=== PATIENT | female | born 1935 | race Caucasian/White ===

== ENCOUNTER 2018-01-09 07:56 | Outpatient (CLI) | payer MEDICARE ==
[2018-01-09] MEDS ORDERED: Gadobenate Dimeglumine 529 MG/1 ML (20ML VIAL) ONE (09:00)
--- NOTE | 2018-01-09 12:17 | MRI ---
MRI LUMBAR SPINE WITH AND WITHOUT GADOLINIUM CONTRAST: HISTORY: Prior surgery. Chronic low back pain with worsening right leg radiculopathy. FINDINGS: Images including the retroperitoneum show a tiny cortical cyst of the left kidney. The conus medulla ris has a normal appearance. Vertebral body heights are maintained. There is rightward convex rotat or scoliotic curvature. Desiccation of all intervertebral disks. T12-L1: Mild osteophytosis. Central anal and neural foramina are patent. L1-L2: Mild disk space narrowing and posterior disk bulge. Circumferential degenerative changes. M ild stenosis of the central canal and each neural foramen. L2-L3: Minimal degenerative retrolisthesis. Disk space narrowing and mild disk bulge. Postoperativ e decompression. Prominent osseous hypertrophy of the facets. Severe right and moderate left forami nal stenoses. L3-L4: Extensive postoperative changes. Disk space narrowing. Grade 1 degenerative spondylolisthes is. Posterior bulge of the intervertebral disk. Moderate stenosis of the central canal remains. Se danita bilateral foraminal stenoses. L4-L5: Postoperative changes with fusion of the disk space. The thecal sac is patent with posterior decompression. Mild right foraminal stenosis. L5-S1: Mild osteophytosis. Central canal and neural foramina are patent. 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 Clinical correlation regarding the right L 3 dermatome is required. POS: [facility]
== END 2018-01-09 07:57 | disposition home or self-care (01) ==
LOC: SCSMRI 07:56
PROVIDERS: ATTEND Nurse Practitioner Family
DX: M47.26 Other spondylosis with radiculopathy, lumbar region (principal); Z98.890 Other specified postprocedural states
CPT/HCPCS: 72158; 82565; A9579

== ENCOUNTER 2019-05-15 14:17 | Emergency (ER) | payer MEDICARE ==
--- NOTE | 2019-05-15 15:12 | ULT ---
VENOUS DOPPLER ULTRASOUND OF THE RIGHT LOWER EXTREMITY: Date: 05/15/19 HISTORY: Right lower extremity edema. TECHNIQUE: Hale scale ultrasound with color flow and spectral Doppler imaging of the deep venous system of the r ight lower extremity was performed. FINDINGS: There is good flow, compression, and augmentation noted in the right common femoral, femoral, deep fe moral, popliteal, posterior tibial, and greater saphenous veins. IMPRESSION: No evidence of deep venous thrombosis in the right lower extremity. POS: OFF
== END 2019-05-15 15:39 | disposition home or self-care (01) ==
LOC: ERS 14:17
DX: M79.661 Pain in right lower leg (principal); I10 Essential (primary) hypertension; Z79.899 Other long term (current) drug therapy; Z79.82 Long term (current) use of aspirin

== ENCOUNTER 2022-09-07 11:17 | Emergency (ER) | payer MEDICARE ==
[2022-09-07] MEDS ORDERED: Ondansetron PF 4 MG/2 ML Vial ONE (12:11)
[2022-09-07] MEDS ORDERED: Acetaminophen 500 MG TAB ONE ×2 (12:11→12:13)
[2022-09-07 12:12] LABS: #Lymphocytes 1.1 thou/uL (1.20-3.40); #Monocytes 0.6 thou/uL (0.11-0.59); #Neutrophils 8.2 thou/uL (1.40-6.50); %Basophils 0.1 % (0.0-1.0); %Eosinophils 0.3 % (0.0-10.0); %Lymphocytes 11.1 % (21.0-51.0); %Monocytes 6.2 % (0.0-10.0); %Neutrophils 82.4 % (42.0-75.0); Hemoglobin 12.7 g/dL (12.0-16.0); Mean Corpuscular HGB CONC 33.3 g/dL (32.0-36.0); Mean Corpuscular Hemoglobin 32.1 pg (27.0-31.0); Mean Corpuscular Volume 96.5 fl (78.0-98.0); Mean Platelet Volume 7.3 fL (7.4-10.4); Platelet Count 220 10x3/uL (130-400); RBC Distribution Width 11.2 % (11.5-14.5); Red Blood Cell (RBC) Count 3.94 mill/uL (4.20-5.40)
[2022-09-07 12:23] LABS: Bacteria/HPF 1+ HPF (None Seen); Bilirubin Negative (Negative); Blood, Urine Negative (Negative); Clarity Turbid (Clear); Glucose, Urine (Dipstick) Normal (Negative); Ketone, Urine Negative (Negative); Leukocyte Negative Leu/uL (Negative); Nitrite Negative (Negative); Protein, Urine (Dipstick) 50 mg/dL (Neg-Trace); RBC/HPF 0-3 HPF (0-3); Specific Gravity, Urine 1.021 (1.002-1.036); WBC/HPF 0-3 HPF (0-3); pH, Urine 6.5 (5.0-9.0)
[2022-09-07 12:34] LABS: ALT (SGPT) 22 U/L (8-55); AST (SGOT) 20 U/L (5-34); Albumin 3.9 g/dL (3.4-4.8); Alkaline Phosphatase 77 U/L (40-110); Anion Gap 15 mmol/L (10-20); BUN (Urea Nitrogen) 12 mg/dL (9.8-20.1); Calc. Creatinine Clearance 0 mL/min (70-130); Calcium 9.6 mg/dL (7.8-10.44); Carbon Dioxide 22 mmol/L (23-31); Chloride 101 mmol/L (98-107); Estimated GFR 68; Globulin 2.8 g/dL (2.4-3.5); Glucose 122 mg/dL (83-110); Lipase 30 U/L (8-78); Potassium 3.7 mmol/L (3.5-5.1); Protein, Total 6.7 g/dL (5.8-8.1); Sodium 134 mmol/L (136-145)
== END 2022-09-07 15:42 | disposition home or self-care (01) ==
LOC: ERS 11:17
DX: K52.9 Noninfective gastroenteritis and colitis, unspecified (principal); K86.89 Other specified diseases of pancreas; I25.10 Atherosclerotic heart disease of native coronary artery without angina pectoris; I10 Essential (primary) hypertension; Z79.899 Other long term (current) drug therapy
CPT/HCPCS: 36415; 74177; 80053; 81003; 81015; 83690; 84484; 85025; 93005; 96361; 96374; J2405

== ENCOUNTER 2022-09-12 05:00 | Observation (INO) | payer MEDICARE ==
[2022-09-12 06:39] VITALS: BMI 27.8
[2022-09-12] MEDS ORDERED: Dicyclomine 20 MG TAB PO PRN (06:47)
[2022-09-12] MEDS ORDERED: Cyclobenzaprine 10 MG TAB PO PRN (06:47)
[2022-09-12] MEDS ORDERED: Fluticasone Propionate Nasal Spray 16 gm Bottle NASAL PRN (06:47)
[2022-09-12 06:51] LABS: #Basophils 0.1 thou/uL (0.0-0.2); #Eosinphils 0.1 thou/uL (0.0-0.7); #Lymphocytes 1.2 thou/uL (1.20-3.40); #Monocytes 0.5 thou/uL (0.11-0.59); #Neutrophils 2.6 thou/uL (1.40-6.50); %Basophils 1.7 % (0.0-1.0); %Lymphocytes 26.5 % (21.0-51.0); %Monocytes 11.9 % (0.0-10.0); Mean Corpuscular HGB CONC 34.7 g/dL (32.0-36.0); Mean Platelet Volume 7.3 fL (7.4-10.4); Platelet Count 185 10x3/uL (130-400); RBC Distribution Width 11.3 % (11.5-14.5); Red Blood Cell (RBC) Count 3.62 mill/uL (4.20-5.40); White Blood Cell (WBC) Count 4.5 10x3/uL (4.8-10.8)
[2022-09-12] MEDS ORDERED: Estradiol 1 MG TAB PO PRN (07:02)
[2022-09-12 07:04] LABS: ALT (SGPT) 23 U/L (8-55); AST (SGOT) 39 U/L (5-34); Albumin 3.6 g/dL (3.4-4.8); Alkaline Phosphatase 67 U/L (40-110); Anion Gap 17 mmol/L (10-20); BUN (Urea Nitrogen) 10 mg/dL (9.8-20.1); Bilirubin, Total 0.5 mg/dL (0.2-1.2); Calc. Creatinine Clearance 47 mL/min (70-130); Calcium 9.5 mg/dL (7.8-10.44); Carbon Dioxide 18 mmol/L (23-31); Chloride 99 mmol/L (98-107); Estimated GFR 53; Globulin 2.7 g/dL (2.4-3.5); Glucose 116 mg/dL (83-110); Lipase 29 U/L (8-78); Potassium 3.9 mmol/L (3.5-5.1); Protein, Total 6.3 g/dL (5.8-8.1); Sodium 130 mmol/L (136-145); Troponin I 0.052 ng/mL (< 0.028)
[2022-09-12 07:05] LABS: Lactic Acid 1.5 mmol/L (0.5-2.2)
[2022-09-12 07:26] LABS: Magnesium 1.2 mg/dL (1.6-2.6); Phosphorus 2.6 mg/dL (2.3-4.7)
[2022-09-12 08:56] LABS: Troponin I 0.999 ng/mL (< 0.028)
[2022-09-12] MEDS ORDERED: Metoprolol Tartrate 25 MG TAB PO SCH (09:00)
[2022-09-12] MEDS ORDERED: Heparin 25,000 units/D5W 500 ML IVPB SCH (09:15)
[2022-09-12] MEDS ORDERED: Magnesium 2 GM/50 ML(in water) 2 GM in Premix Bag 1 BAG IVPB SCH (09:15)
[2022-09-12] MEDS ORDERED: Heparin 10,000 UNITS/ 10 ML VIAL SLOW IVP SCH (09:15)
[2022-09-12] MEDS: Ciprofloxacin 500 MG TAB PO SCH ×2 (09:49→21:00)
[2022-09-12] MEDS: Ascorbic Acid 500 mg Chewable Tablet PO SCH (09:49)
[2022-09-12] MEDS: metroNIDAZOLE 500 MG TAB PO SCH ×3 (09:50→21:01)
[2022-09-12] MEDS: Amlodipine 5 MG TAB PO SCH (09:50)
[2022-09-12] MEDS: Ipratropium Bromide 0.06% Nasal Inhaler 15ml EA NARE SCH (09:50)
[2022-09-12 10:18] LABS: Hemoglobin 10.8 g/dL (12.0-16.0); Platelet Count 174 10x3/uL (130-400)
[2022-09-12 10:50] LABS: Troponin I 1.261 ng/mL (< 0.028)
[2022-09-12 11:21] LABS: Bilirubin Negative (Negative); Blood, Urine Negative (Negative); CAUTI Indications for Culture Dysuria,urgency,freq; Clarity Clear (Clear); Glucose, Urine (Dipstick) Normal (Negative); Ketone, Urine 10 mg/dL (Negative); Leukocyte Negative Leu/uL (Negative); Nitrite Negative (Negative); Protein, Urine (Dipstick) Negative (Neg-Trace); RBC/HPF 0-3 HPF (0-3); Specific Gravity, Urine 1.012 (1.002-1.036); Urobilinogen Normal mg/dL (Less than 2); WBC/HPF 0-3 HPF (0-3); pH, Urine 6.5 (5.0-9.0)
[2022-09-12 11:22] LABS: Bacteria/HPF 1+ HPF (None Seen)
[2022-09-12 11:24] LABS: Urine Culture Reflex No No
[2022-09-12] MEDS: Amiodarone 200 MG TAB PO SCH ×2 (14:55→20:59)
[2022-09-12] MEDS ORDERED: Amiodarone 200 MG TAB PO SCH (15:00)
[2022-09-12] MEDS: Apixaban 5 MG TAB PO SCH (20:59)
[2022-09-12] MEDS ORDERED: Lisinopril 20 MG TAB PO SCH (21:00)
[2022-09-12] MEDS ORDERED: Fish Oil 1,000 MG CAP PO SCH (21:00)
[2022-09-12] MEDS ORDERED: SIMVASTATIN PO SCH (21:00)
[2022-09-12] MEDS ORDERED: Calcium Carbonate 600 MG + Vit D TAB PO SCH (21:00)
[2022-09-12] MEDS ORDERED: Simvastatin 10 MG TAB PO SCH (21:00)
[2022-09-12] MEDS ORDERED: Multivitamin W/ Minerals 1 TAB PO SCH (21:00)
[2022-09-12] MEDS ORDERED: Aspirin Chewable 81 MG TAB PO SCH (21:00)
[2022-09-12] MEDS ORDERED: Simvastatin 40 MG TAB PO SCH (21:00)
[2022-09-12] MEDS ORDERED: EZETIMIBE PO SCH (21:00)
[2022-09-12] MEDS ORDERED: Ezetimibe 10 MG TAB PO SCH ×2 (21:00)
[2022-09-13 05:07] LABS: #Eosinphils 0.1 thou/uL (0.0-0.7); #Lymphocytes 1.3 thou/uL (1.20-3.40); #Monocytes 0.4 thou/uL (0.11-0.59); #Neutrophils 1.7 thou/uL (1.40-6.50); %Basophils 0.8 % (0.0-1.0); %Eosinophils 1.8 % (0.0-10.0); %Lymphocytes 37.9 % (21.0-51.0); %Monocytes 12.1 % (0.0-10.0); %Neutrophils 47.4 % (42.0-75.0); Hemoglobin 10.5 g/dL (12.0-16.0); Mean Corpuscular HGB CONC 33.7 g/dL (32.0-36.0); Mean Corpuscular Hemoglobin 32.2 pg (27.0-31.0); Mean Corpuscular Volume 95.8 fl (78.0-98.0); Mean Platelet Volume 7.5 fL (7.4-10.4); Platelet Count 155 10x3/uL (130-400); RBC Distribution Width 11.2 % (11.5-14.5); Red Blood Cell (RBC) Count 3.27 mill/uL (4.20-5.40); White Blood Cell (WBC) Count 3.5 10x3/uL (4.8-10.8)
[2022-09-13 05:11] LABS: Anion Gap 12 mmol/L (10-20); BUN (Urea Nitrogen) 7 mg/dL (9.8-20.1); Calc. Creatinine Clearance 62 mL/min (70-130); Calcium 8.7 mg/dL (7.8-10.44); Carbon Dioxide 22 mmol/L (23-31); Chloride 101 mmol/L (98-107); Estimated GFR 76; Glucose 102 mg/dL (83-110); Magnesium 1.6 mg/dL (1.6-2.6); Phosphorus 2.9 mg/dL (2.3-4.7); Potassium 3.7 mmol/L (3.5-5.1); Sodium 131 mmol/L (136-145)
[2022-09-13] MEDS: Amiodarone 200 MG TAB PO SCH (08:44)
[2022-09-13] MEDS: Amlodipine 5 MG TAB PO SCH (08:45)
[2022-09-13] MEDS: Apixaban 5 MG TAB PO SCH (08:45)
[2022-09-13] MEDS: Ipratropium Bromide 0.06% Nasal Inhaler 15ml EA NARE SCH (08:46)
[2022-09-13] MEDS: Ascorbic Acid 500 mg Chewable Tablet PO SCH (08:46)
[2022-09-13] MEDS: Ciprofloxacin 500 MG TAB PO SCH (08:46)
[2022-09-13] MEDS: metroNIDAZOLE 500 MG TAB PO SCH (08:47)
[2022-09-13] MEDS ORDERED: Magnesium Oxide 400 MG TAB PO SCH (09:00)
[2022-09-13 12:11] VITALS: TEMP 98.6
[2022-09-13 12:35] VITALS: BP 131/64
[2022-09-13] MEDS ORDERED: Rosuvastatin 20 MG TAB PO SCH (21:00)
== END 2022-09-13 12:56 | disposition home or self-care (01) ==
LOC: ERS 05:00 → 2SW 06:21
PROVIDERS: ADMIT Family Medicine; ATTEND Family Medicine
DX: I48.0 Paroxysmal atrial fibrillation (principal); R07.2 Precordial pain; I25.10 Atherosclerotic heart disease of native coronary artery without angina pectoris; K58.9 Irritable bowel syndrome, unspecified; E87.1 Hypo-osmolality and hyponatremia; K86.9 Disease of pancreas, unspecified; I10 Essential (primary) hypertension; K21.9 Gastro-esophageal reflux disease without esophagitis; E78.5 Hyperlipidemia, unspecified; K57.30 Diverticulosis of large intestine without perforation or abscess without bleeding; R91.8 Other nonspecific abnormal finding of lung field; E83.42 Hypomagnesemia; E11.9 Type 2 diabetes mellitus without complications; I08.3 Combined rheumatic disorders of mitral, aortic and tricuspid valves; Z66 Do not resuscitate; Z86.16 Personal history of COVID-19; Z79.2 Long term (current) use of antibiotics; Z79.82 Long term (current) use of aspirin; Z79.899 Other long term (current) drug therapy; Z88.0 Allergy status to penicillin; Z88.5 Allergy status to narcotic agent; Z20.822 Contact with and (suspected) exposure to COVID-19
CPT/HCPCS: 71045; 80048; 81001; 83605; 83690; 83735 ×2; 84100 ×2; 84484; 85014; 85018; 85025; 85049; 85730; 93005; 93306; 97116; 97535; U0003; U0005; 36415; 80053; 84443; 93010; 96374; 96375; G0378; J1644; J3475

== ENCOUNTER 2022-10-29 09:45 | Day surgery (SDC) | payer MEDICARE ==
[2022-10-25 11:13] VITALS: BMI 25.2
[2022-10-29] MEDS ORDERED: Acetaminophen 500 MG TAB ONE (10:31)
[2022-10-29] MEDS ORDERED: Ketorolac Tromethamine 30 MG/ML VIAL ONE (10:31)
[2022-10-29] MEDS ORDERED: Lidocaine 1% (PF) 30 ML VIAL ONE (11:13)
[2022-10-29] MEDS ORDERED: Bupivacaine/Epinephrine 0.25% 30 ML VIAL ONE (11:13)
[2022-10-29 11:21] LABS: Potassium 3.1 mmol/L (3.5-5.1)
[2022-10-29] MEDS ORDERED: FENTANYL 50 MCG/ML 1 ML VIAL ONE (11:37)
[2022-10-29] MEDS ORDERED: PROPOFOL 20 ML ONE (11:37)
[2022-10-29] MEDS ORDERED: CEFAZOLIN 2 GM VIAL ONE (14:31)
[2022-10-29] MEDS ORDERED: Sodium Chloride 0.9% 100 ML ONE (14:31)
== END 2022-10-29 16:10 | disposition home or self-care (01) ==
LOC: SDC 09:45
PROVIDERS: ATTEND Specialist
PROC: 0JH63WZ Insertion of Totally Implantable Vascular Access Device into Chest Subcutaneous Tissue and Fascia, Percutaneous Approach (ICD-10-PCS; principal; 2022-10-29)
PROC: 02HV33Z Insertion of Infusion Device into Superior Vena Cava, Percutaneous Approach (ICD-10-PCS; 2022-10-29)
PROC: B5181ZA Fluoroscopy of Superior Vena Cava using Low Osmolar Contrast, Guidance (ICD-10-PCS; 2022-10-29)
DX: C78.89 Secondary malignant neoplasm of other digestive organs (principal); C80.1 Malignant (primary) neoplasm, unspecified; I13.0 Hypertensive heart and chronic kidney disease with heart failure and stage 1 through stage 4 chronic kidney disease, or unspecified chronic kidney disease; N18.30 Chronic kidney disease, stage 3 unspecified; I50.30 Unspecified diastolic (congestive) heart failure; Z88.0 Allergy status to penicillin; Z88.5 Allergy status to narcotic agent; Z95.5 Presence of coronary angioplasty implant and graft; Z79.82 Long term (current) use of aspirin; Z79.01 Long term (current) use of anticoagulants; Z79.899 Other long term (current) drug therapy
CPT/HCPCS: 71045; 84132; C1788; J1642; J1885; J2001; J2704; J3010; J3490

== ENCOUNTER 2022-11-01 09:39 | Inpatient (IN) | payer MEDICARE ==
[2022-11-01] MEDS ORDERED: Cefepime 2 GM VIAL ONE (10:24)
[2022-11-01 11:09] LABS: ALT (SGPT) 16 U/L (8-55); AST (SGOT) 34 U/L (5-34); Albumin 3.2 g/dL (3.4-4.8); Alkaline Phosphatase 113 U/L (40-110); Anion Gap 15 mmol/L (10-20); BUN (Urea Nitrogen) 12 mg/dL (9.8-20.1); Bilirubin, Total 1.6 mg/dL (0.2-1.2); CK (CPK) 91 U/L (29-168); Calc. Creatinine Clearance 0 mL/min (70-130); Calcium 8.8 mg/dL (7.8-10.44); Carbon Dioxide 19 mmol/L (23-31); Chloride 102 mmol/L (98-107); Estimated GFR 36; Globulin 3.1 g/dL (2.4-3.5); Glucose 121 mg/dL (83-110); Lipase 8 U/L (8-78); Potassium 3.3 mmol/L (3.5-5.1); Protein, Total 6.3 g/dL (5.8-8.1); Sodium 133 mmol/L (136-145)
[2022-11-01 11:28] LABS: #Lymphocytes 0.4 thou/uL (1.20-3.40); #Neutrophils 1.8 thou/uL (1.40-6.50); %Eosinophils 0.7 % (0.0-10.0); %Lymphocytes 16.1 % (21.0-51.0); %Monocytes 1.1 % (0.0-10.0); %Neutrophils 82.2 % (42.0-75.0); Burr Cells SLIGHT = 2-5 cells (100X) (0-1/hpf); Hemoglobin 8.5 g/dL (12.0-16.0); MDiff Complete? YES; Mean Corpuscular Hemoglobin 29.9 pg (27.0-31.0); Mean Corpuscular Volume 93.7 fl (78.0-98.0); Mean Platelet Volume 7.7 fL (7.4-10.4); Platelet Count 117 10x3/uL (130-400); Platelet Morphology Comment Appears Decreased; Polychromasia SLIGHT = 2-3 cells (100X) (0-2/hpf); Red Blood Cell (RBC) Count 2.85 mill/uL (4.20-5.40); White Blood Cell (WBC) Count 2.2 10x3/uL (4.8-10.8)
[2022-11-01 11:30] LABS: CKMB 1.9 ng/mL (0-6.6)
[2022-11-01] MEDS ORDERED: Vancomycin 1 GM/200 ML (FROZEN) BAG ONE (11:30)
[2022-11-01 12:57] LABS: SARS-CoV-2 NAA Rapid Test Not Detected (NotDetected)
[2022-11-01] MEDS ORDERED: Iopamidol-370 76% 500 ML MDV (1 ML CHARGE) ONE (13:38)
[2022-11-01 14:20] VITALS: BMI 27.5
[2022-11-01 14:55] LABS: Lactic Acid 1.4 mmol/L (0.5-2.2)
[2022-11-01] MEDS ORDERED: Vancomycin Dose by Levels Sliding Scale (Wt 71-99) FS SCH (15:30)
[2022-11-01] MEDS ORDERED: Potassium Chloride 20 MEQ TAB PO SCH (15:30)
[2022-11-01] MEDS ORDERED: Lactated Ringer's 1,000 ML IV SCH (15:30)
[2022-11-01] MEDS ORDERED: Furosemide 20 MG TAB PO SCH (15:45)
[2022-11-01] MEDS: Acetaminophen 325 MG TAB PO PRN (15:57)
[2022-11-01] MEDS: Ondansetron PF 4 MG/2 ML Vial IVP PRN (15:57)
[2022-11-01 16:26] LABS: Troponin I 0.092 ng/mL (< 0.028)
[2022-11-01] MEDS ORDERED: Potassium Chloride 20 MEQ in Premix Bag 1 BAG IVPB SCH (16:45)
[2022-11-01] MEDS ORDERED: Ondansetron ODT 4 MG TAB PO PRN (18:12)
[2022-11-01] MEDS ORDERED: Cyclobenzaprine 10 MG TAB PO PRN (18:12)
[2022-11-01] MEDS ORDERED: Dicyclomine 20 MG TAB PO PRN (18:12)
[2022-11-01] MEDS ORDERED: Naloxone HCl 0.4 mg/ml Vial IV PRN (18:16)
[2022-11-01 19:21] LABS: Bacteria/HPF None Seen HPF (None Seen); Bilirubin Negative (Negative); Blood, Urine 1+ (Negative); CAUTI Indications for Culture Fever or rigors; Clarity Clear (Clear); Glucose, Urine (Dipstick) Normal (Negative); Ketone, Urine Negative (Negative); Leukocyte Negative Leu/uL (Negative); Nitrite Negative (Negative); Protein, Urine (Dipstick) 50 mg/dL (Neg-Trace); Specific Gravity, Urine 1.013 (1.002-1.036); Squamous Epithelial None Seen HPF (0-3); Urobilinogen Normal mg/dL (Less than 2); WBC/HPF 0-3 HPF (0-3); pH, Urine 6.5 (5.0-9.0)
[2022-11-01 19:23] LABS: Urine Culture Reflex No No
[2022-11-01 20:30] LABS: Troponin I 0.135 ng/mL (< 0.028)
[2022-11-01] MEDS ORDERED: Vancomycin 1 GM in Premix Bag 1 BAG IVPB SCH (21:00)
[2022-11-01] MEDS: Cefepime 1 GM in Sodium Chloride 0.9% 100 ML IVPB SCH (22:04)
[2022-11-01] MEDS: Aspirin Chewable 81 MG TAB PO SCH (22:05)
[2022-11-01] MEDS: HYDROmorphone 2 MG TAB PO SCH (22:05)
[2022-11-01] MEDS: Lisinopril 20 MG TAB PO SCH (22:05)
[2022-11-01] MEDS: Mirtazapine 15 MG Soltab PO SCH (22:05)
[2022-11-01] MEDS: Apixaban 5 MG TAB PO SCH (22:07)
[2022-11-01] MEDS: Clotrimazole 2% 3 Day Vag Cr 22.2 GM TUBE VAG SCH (22:07)
[2022-11-01 23:19] LABS: Troponin I 0.112 ng/mL (< 0.028)
[2022-11-02] MEDS: HYDROmorphone 2 MG TAB PO SCH ×2 (01:28→03:48)
[2022-11-02 05:44] LABS: #Lymphocytes 0.5 thou/uL (1.20-3.40); #Monocytes 0.1 thou/uL (0.11-0.59); #Neutrophils 2.2 thou/uL (1.40-6.50); %Basophils 0.2 % (0.0-1.0); %Eosinophils 1.3 % (0.0-10.0); %Lymphocytes 18.3 % (21.0-51.0); %Monocytes 2.3 % (0.0-10.0); %Neutrophils 77.8 % (42.0-75.0); Hemoglobin 8.9 g/dL (12.0-16.0); Mean Corpuscular HGB CONC 33.7 g/dL (32.0-36.0); Mean Corpuscular Hemoglobin 31.9 pg (27.0-31.0); Mean Corpuscular Volume 94.6 fl (78.0-98.0); Mean Platelet Volume 8.2 fL (7.4-10.4); Platelet Count 83 10x3/uL (130-400); White Blood Cell (WBC) Count 2.8 10x3/uL (4.8-10.8)
[2022-11-02 06:14] LABS: Anion Gap 11 mmol/L (10-20); BUN (Urea Nitrogen) 11 mg/dL (9.8-20.1); Calc. Creatinine Clearance 39 mL/min (70-130); Carbon Dioxide 19 mmol/L (23-31); Chloride 109 mmol/L (98-107); Estimated GFR 44; Glucose 92 mg/dL (83-110); Potassium 2.7 mmol/L (3.5-5.1); Sodium 136 mmol/L (136-145)
[2022-11-02] MEDS ORDERED: HYDROmorphone 2 MG TAB PO PRN (07:38)
[2022-11-02] MEDS ORDERED: Potassium Chloride 20 MEQ TAB PO SCH (07:45)
[2022-11-02] MEDS ORDERED: Potassium Chloride 20 MEQ in Premix Bag 1 BAG IVPB SCH ×2 (07:45→08:45)
[2022-11-02] MEDS: Apixaban 5 MG TAB PO SCH ×3 (08:40→23:13)
[2022-11-02] MEDS: Cefepime 1 GM in Sodium Chloride 0.9% 100 ML IVPB SCH ×2 (08:40→22:11)
[2022-11-02] MEDS: Amlodipine 5 MG TAB PO SCH (08:41)
[2022-11-02] MEDS: Amiodarone 200 MG TAB PO SCH (08:41)
[2022-11-02] MEDS: Lactated Ringer's 1,000 ML IV SCH ×2 (11:45→23:13)
[2022-11-02] MEDS ORDERED: Vancomycin 1 GM in Premix Bag 1 BAG IVPB SCH (13:00)
[2022-11-02] MEDS: HYDROmorphone 2 MG TAB PO PRN ×2 (13:20→17:15)
[2022-11-02] MEDS: Ondansetron PF 4 MG/2 ML Vial IVP PRN (13:21)
[2022-11-02] MEDS: Lisinopril 20 MG TAB PO SCH (22:12)
[2022-11-02] MEDS: Aspirin Chewable 81 MG TAB PO SCH ×2 (22:12→23:13)
[2022-11-02] MEDS: Clotrimazole 2% 3 Day Vag Cr 22.2 GM TUBE VAG SCH (22:13)
[2022-11-02] MEDS: Mirtazapine 15 MG Soltab PO SCH (22:13)
[2022-11-02] MEDS: Rosuvastatin 20 MG TAB PO SCH (22:13)
[2022-11-03 07:03] LABS: ALT (SGPT) 17 U/L (8-55); AST (SGOT) 37 U/L (5-34); Albumin 2.3 g/dL (3.4-4.8); Alkaline Phosphatase 83 U/L (40-110); Anion Gap 10 mmol/L (10-20); BUN (Urea Nitrogen) 9 mg/dL (9.8-20.1); Bilirubin, Total 0.6 mg/dL (0.2-1.2); Calc. Creatinine Clearance 40 mL/min (70-130); Calcium 7.9 mg/dL (7.8-10.44); Carbon Dioxide 20 mmol/L (23-31); Chloride 107 mmol/L (98-107); Estimated GFR 45; Globulin 2.4 g/dL (2.4-3.5); Glucose 102 mg/dL (83-110); Potassium 3.3 mmol/L (3.5-5.1); Protein, Total 4.7 g/dL (5.8-8.1); Sodium 134 mmol/L (136-145)
[2022-11-03 07:31] LABS: Hemoglobin 7.7 g/dL (12.0-16.0); Mean Corpuscular HGB CONC 32.6 g/dL (32.0-36.0); Mean Corpuscular Hemoglobin 30.4 pg (27.0-31.0); Mean Corpuscular Volume 93.3 fl (78.0-98.0); RBC Distribution Width 12.3 % (11.5-14.5); Red Blood Cell (RBC) Count 2.55 mill/uL (4.20-5.40)
[2022-11-03] MEDS: Lactated Ringer's 1,000 ML IV SCH (07:51)
[2022-11-03 09:24] LABS: #Eosinphils 0.1 thou/uL (0.0-0.7); #Lymphocytes 0.6 thou/uL (1.20-3.40); #Monocytes 0.1 thou/uL (0.11-0.59); #Neutrophils 2.7 thou/uL (1.40-6.50); %Basophils 0.1 % (0.0-1.0); %Eosinophils 1.8 % (0.0-10.0); %Lymphocytes 16.3 % (21.0-51.0); %Monocytes 1.5 % (0.0-10.0); %Neutrophils 80.2 % (42.0-75.0); Mean Platelet Volume 8.3 fL (7.4-10.4); Platelet Count 54 10x3/uL (130-400); Platelet Morphology Comment Appears Decreased; White Blood Cell (WBC) Count 3.4 10x3/uL (4.8-10.8)
[2022-11-03] MEDS: Amlodipine 5 MG TAB PO SCH (09:43)
[2022-11-03] MEDS: Amiodarone 200 MG TAB PO SCH (09:43)
[2022-11-03] MEDS: Apixaban 5 MG TAB PO SCH ×2 (09:43→22:22)
[2022-11-03] MEDS ORDERED: Potassium Chloride 20 MEQ TAB PO SCH (09:45)
[2022-11-03] MEDS: HYDROmorphone 2 MG TAB PO PRN ×2 (10:07→14:49)
[2022-11-03 11:02] LABS: Magnesium 1.3 mg/dL (1.6-2.6)
[2022-11-03 11:19] LABS: Phosphorus 1.3 mg/dL (2.3-4.7)
[2022-11-03] MEDS: Cefepime 1 GM in Sodium Chloride 0.9% 100 ML IVPB SCH (13:42)
[2022-11-03] MEDS: Furosemide 20 MG/2 ML VIAL SLOW IVP SCH (14:08)
[2022-11-03 21:34] LABS: Hemoglobin 10.7 g/dL (12.0-16.0)
[2022-11-03] MEDS: Dicyclomine 20 MG TAB PO PRN (22:21)
[2022-11-03] MEDS: Lisinopril 20 MG TAB PO SCH (22:21)
[2022-11-03] MEDS: Magnesium Oxide 400 MG TAB PO SCH (22:22)
[2022-11-03] MEDS: Rosuvastatin 20 MG TAB PO SCH (22:22)
[2022-11-03] MEDS: Mirtazapine 15 MG Soltab PO SCH (22:22)
[2022-11-03] MEDS: Aspirin Chewable 81 MG TAB PO SCH (22:24)
[2022-11-03] MEDS: PHOS-NAK 1 PKT PACK PO SCH (22:24)
[2022-11-03] MEDS: Clotrimazole 2% 3 Day Vag Cr 22.2 GM TUBE VAG SCH (22:24)
[2022-11-04] MEDS: HYDROmorphone 2 MG TAB PO PRN ×4 (00:36→16:59)
[2022-11-04] MEDS ORDERED: diphenhydrAMINE 25 MG CAP PO PRN (01:24)
[2022-11-04] MEDS ORDERED: fentaNYL 50 mcg/mL 1 mL Vial SLOW IVP PRN (01:31)
[2022-11-04 06:10] LABS: #Eosinphils 0.1 thou/uL (0.0-0.7); #Lymphocytes 0.5 thou/uL (1.20-3.40); #Monocytes 0.1 thou/uL (0.11-0.59); %Eosinophils 1.5 % (0.0-10.0); %Lymphocytes 11.3 % (21.0-51.0); %Monocytes 1.8 % (0.0-10.0); %Neutrophils 85.4 % (42.0-75.0); Hemoglobin 9.5 g/dL (12.0-16.0); Mean Corpuscular HGB CONC 33.9 g/dL (32.0-36.0); Mean Corpuscular Hemoglobin 32.1 pg (27.0-31.0); Mean Corpuscular Volume 94.5 fl (78.0-98.0); Mean Platelet Volume 8.4 fL (7.4-10.4); Platelet Count 49 10x3/uL (130-400); RBC Distribution Width 12.4 % (11.5-14.5); Red Blood Cell (RBC) Count 2.95 mill/uL (4.20-5.40); White Blood Cell (WBC) Count 4.7 10x3/uL (4.8-10.8)
[2022-11-04 06:33] LABS: ALT (SGPT) 21 U/L (8-55); AST (SGOT) 52 U/L (5-34); Albumin 2.7 g/dL (3.4-4.8); Alkaline Phosphatase 100 U/L (40-110); Anion Gap 13 mmol/L (10-20); BUN (Urea Nitrogen) 9 mg/dL (9.8-20.1); Bilirubin, Total 0.7 mg/dL (0.2-1.2); Calc. Creatinine Clearance 35 mL/min (70-130); Carbon Dioxide 17 mmol/L (23-31); Chloride 106 mmol/L (98-107); Estimated GFR 39; Globulin 2.4 g/dL (2.4-3.5); Glucose 110 mg/dL (83-110); Magnesium 1.3 mg/dL (1.6-2.6); Protein, Total 5.1 g/dL (5.8-8.1); Sodium 133 mmol/L (136-145)
[2022-11-04 06:39] LABS: Phosphorus 1.8 mg/dL (2.3-4.7)
[2022-11-04] MEDS ORDERED: Potassium Chloride 20 MEQ TAB PO SCH (08:00)
[2022-11-04] MEDS ORDERED: Preparation H Suppository PR PRN (08:09)
[2022-11-04] MEDS: Potassium Chloride 20 MEQ TAB PO SCH ×4 (10:00→16:49)
[2022-11-04] MEDS: Magnesium Oxide 400 MG TAB PO SCH ×2 (10:01→21:48)
[2022-11-04] MEDS: Amlodipine 5 MG TAB PO SCH (10:01)
[2022-11-04] MEDS: PHOS-NAK 1 PKT PACK PO SCH ×2 (10:05→21:48)
[2022-11-04] MEDS: Amiodarone 200 MG TAB PO SCH (10:06)
[2022-11-04] MEDS: Furosemide 20 MG/2 ML VIAL SLOW IVP SCH (13:16)
[2022-11-04] MEDS ORDERED: Lactated Ringer's 1,000 ML IV SCH ×2 (14:45→17:50)
[2022-11-04] MEDS: Acetaminophen 325 MG TAB PO PRN (19:51)
[2022-11-04] MEDS: Dicyclomine 20 MG TAB PO PRN (21:48)
[2022-11-04] MEDS: Aspirin Chewable 81 MG TAB PO SCH (21:48)
[2022-11-04] MEDS: Rosuvastatin 20 MG TAB PO SCH (21:48)
[2022-11-04] MEDS: Mirtazapine 15 MG Soltab PO SCH (21:48)
[2022-11-04] MEDS: diphenhydrAMINE 25 MG CAP PO PRN (22:03)
[2022-11-05 07:08] LABS: #Eosinphils 0.1 thou/uL (0.0-0.7); #Lymphocytes 0.5 thou/uL (1.20-3.40); #Monocytes 0.2 thou/uL (0.11-0.59); #Neutrophils 2.8 thou/uL (1.40-6.50); %Basophils 0.2 % (0.0-1.0); %Eosinophils 1.6 % (0.0-10.0); %Lymphocytes 14.8 % (21.0-51.0); %Monocytes 4.2 % (0.0-10.0); %Neutrophils 79.2 % (42.0-75.0); Hemoglobin 8.6 g/dL (12.0-16.0); Mean Corpuscular HGB CONC 33.2 g/dL (32.0-36.0); Mean Corpuscular Hemoglobin 31.1 pg (27.0-31.0); Mean Corpuscular Volume 93.8 fl (78.0-98.0); Mean Platelet Volume 8.6 fL (7.4-10.4); Platelet Count 45 10x3/uL (130-400); RBC Distribution Width 12.4 % (11.5-14.5); Red Blood Cell (RBC) Count 2.75 mill/uL (4.20-5.40); White Blood Cell (WBC) Count 3.5 10x3/uL (4.8-10.8)
[2022-11-05 07:18] LABS: Phosphorus 2.1 mg/dL (2.3-4.7)
[2022-11-05 07:24] LABS: ALT (SGPT) 23 U/L (8-55); AST (SGOT) 39 U/L (5-34); Albumin 2.3 g/dL (3.4-4.8); Alkaline Phosphatase 92 U/L (40-110); Anion Gap 10 mmol/L (10-20); BUN (Urea Nitrogen) 9 mg/dL (9.8-20.1); Bilirubin, Total 0.6 mg/dL (0.2-1.2); Calc. Creatinine Clearance 39 mL/min (70-130); Calcium 7.9 mg/dL (7.8-10.44); Carbon Dioxide 21 mmol/L (23-31); Chloride 109 mmol/L (98-107); Estimated GFR 43; Globulin 2.3 g/dL (2.4-3.5); Glucose 106 mg/dL (83-110); Magnesium 1.4 mg/dL (1.6-2.6); Potassium 4.2 mmol/L (3.5-5.1); Protein, Total 4.6 g/dL (5.8-8.1); Sodium 136 mmol/L (136-145)
[2022-11-05] MEDS: HYDROmorphone 2 MG TAB PO PRN ×3 (07:34→20:30)
[2022-11-05] MEDS ORDERED: Iopamidol 370 76% 100 ML VIAL ONE (09:10)
[2022-11-05] MEDS ORDERED: PHOS-NAK 1 PKT PACK PO SCH (09:15)
[2022-11-05] MEDS ORDERED: MD-Gastroview 120 ML BOT ONE (09:22)
[2022-11-05] MEDS: Magnesium Oxide 400 MG TAB PO SCH ×2 (10:07→20:31)
[2022-11-05] MEDS: Amlodipine 5 MG TAB PO SCH (10:07)
[2022-11-05] MEDS: Amiodarone 200 MG TAB PO SCH (10:08)
[2022-11-05] MEDS: Ondansetron PF 4 MG/2 ML Vial IVP PRN ×2 (13:10→19:24)
[2022-11-05] MEDS ORDERED: Bisacodyl 5 MG TAB PO PRN (14:54)
[2022-11-05] MEDS ORDERED: GoLYTELY 4,000 ml Bottle PO SCH (15:00)
[2022-11-05] MEDS: Lactated Ringer's 1,000 ML IV SCH (15:38)
[2022-11-05] MEDS: PHOS-NAK 1 PKT PACK PO SCH (15:40)
[2022-11-05] MEDS ORDERED: Mineral Oil ENEMA PR SCH (15:42)
[2022-11-05] MEDS ORDERED: Magnesium Citrate 300 ML BOT PO SCH (17:00)
[2022-11-05] MEDS: Aspirin Chewable 81 MG TAB PO SCH (20:30)
[2022-11-05] MEDS: Rosuvastatin 20 MG TAB PO SCH (20:30)
[2022-11-05] MEDS: Mirtazapine 15 MG Soltab PO SCH (20:31)
[2022-11-05] MEDS: diphenhydrAMINE 25 MG CAP PO PRN (20:34)
[2022-11-05] MEDS ORDERED: Senokot S 8.6-50 MG TAB PO SCH (21:00)
[2022-11-06 05:30] LABS: #Lymphocytes 0.6 thou/uL (1.20-3.40); #Monocytes 0.2 thou/uL (0.11-0.59); #Neutrophils 2.6 thou/uL (1.40-6.50); %Eosinophils 0.4 % (0.0-10.0); %Lymphocytes 17.3 % (21.0-51.0); %Neutrophils 75.3 % (42.0-75.0); Hemoglobin 8.8 g/dL (12.0-16.0); Mean Corpuscular HGB CONC 33.7 g/dL (32.0-36.0); Mean Corpuscular Hemoglobin 31.3 pg (27.0-31.0); Mean Corpuscular Volume 92.9 fl (78.0-98.0); Mean Platelet Volume 7.9 fL (7.4-10.4); Platelet Count 62 10x3/uL (130-400); RBC Distribution Width 12.4 % (11.5-14.5); Red Blood Cell (RBC) Count 2.82 mill/uL (4.20-5.40); White Blood Cell (WBC) Count 3.4 10x3/uL (4.8-10.8)
[2022-11-06 06:46] LABS: ALT (SGPT) 21 U/L (8-55); AST (SGOT) 34 U/L (5-34); Albumin 2.5 g/dL (3.4-4.8); Alkaline Phosphatase 100 U/L (40-110); Anion Gap 10 mmol/L (10-20); BUN (Urea Nitrogen) 9 mg/dL (9.8-20.1); Bilirubin, Total 0.7 mg/dL (0.2-1.2); Calc. Creatinine Clearance 42 mL/min (70-130); Calcium 7.7 mg/dL (7.8-10.44); Carbon Dioxide 22 mmol/L (23-31); Chloride 107 mmol/L (98-107); Estimated GFR 48; Globulin 2.3 g/dL (2.4-3.5); Glucose 111 mg/dL (83-110); Potassium 3.1 mmol/L (3.5-5.1); Protein, Total 4.8 g/dL (5.8-8.1); Sodium 136 mmol/L (136-145)
[2022-11-06] MEDS: Lactated Ringer's 1,000 ML IV SCH ×3 (07:55→21:21)
[2022-11-06] MEDS ORDERED: Potassium Chloride 20 MEQ TAB PO SCH (09:00)
[2022-11-06] MEDS: Amlodipine 5 MG TAB PO SCH (09:12)
[2022-11-06] MEDS: PHOS-NAK 1 PKT PACK PO SCH ×2 (09:15→17:10)
[2022-11-06] MEDS: Magnesium Oxide 400 MG TAB PO SCH ×2 (09:16→21:15)
[2022-11-06] MEDS: HYDROmorphone 2 MG TAB PO PRN ×2 (09:16→21:16)
[2022-11-06] MEDS: Amiodarone 200 MG TAB PO SCH (09:16)
[2022-11-06] MEDS: Senokot S 8.6-50 MG TAB PO SCH ×2 (09:16→21:17)
[2022-11-06 11:26] LABS: Magnesium 1.4 mg/dL (1.6-2.6); Phosphorus 2.2 mg/dL (2.3-4.7)
[2022-11-06] MEDS: Aspirin Chewable 81 MG TAB PO SCH (21:15)
[2022-11-06] MEDS: Mirtazapine 15 MG Soltab PO SCH (21:17)
[2022-11-06] MEDS: Rosuvastatin 20 MG TAB PO SCH (21:18)
[2022-11-07] MEDS: HYDROmorphone 2 MG TAB PO PRN ×3 (02:19→20:49)
[2022-11-07] MEDS: diphenhydrAMINE 25 MG CAP PO PRN (03:48)
[2022-11-07 05:25] LABS: #Eosinphils 0.1 thou/uL (0.0-0.7); #Lymphocytes 1.1 thou/uL (1.20-3.40); #Monocytes 0.3 thou/uL (0.11-0.59); #Neutrophils 2.5 thou/uL (1.40-6.50); %Basophils 0.4 % (0.0-1.0); %Eosinophils 1.6 % (0.0-10.0); %Lymphocytes 28.3 % (21.0-51.0); %Monocytes 6.4 % (0.0-10.0); %Neutrophils 63.3 % (42.0-75.0); Hemoglobin 8.8 g/dL (12.0-16.0); Mean Corpuscular HGB CONC 33.9 g/dL (32.0-36.0); Mean Corpuscular Hemoglobin 31.4 pg (27.0-31.0); Mean Corpuscular Volume 92.6 fl (78.0-98.0); Mean Platelet Volume 7.9 fL (7.4-10.4); Platelet Count 94 10x3/uL (130-400); RBC Distribution Width 12.4 % (11.5-14.5); Red Blood Cell (RBC) Count 2.79 mill/uL (4.20-5.40)
[2022-11-07 05:45] LABS: Phosphorus 1.8 mg/dL (2.3-4.7)
[2022-11-07 05:52] LABS: ALT (SGPT) 23 U/L (8-55); AST (SGOT) 46 U/L (5-34); Albumin 2.3 g/dL (3.4-4.8); Alkaline Phosphatase 105 U/L (40-110); Anion Gap 11 mmol/L (10-20); BUN (Urea Nitrogen) 8 mg/dL (9.8-20.1); Bilirubin, Total 0.9 mg/dL (0.2-1.2); Calc. Creatinine Clearance 51 mL/min (70-130); Calcium 7.7 mg/dL (7.8-10.44); Carbon Dioxide 22 mmol/L (23-31); Chloride 107 mmol/L (98-107); Estimated GFR 60; Globulin 2.3 g/dL (2.4-3.5); Glucose 98 mg/dL (83-110); Magnesium 1.4 mg/dL (1.6-2.6); Protein, Total 4.6 g/dL (5.8-8.1); Sodium 137 mmol/L (136-145)
[2022-11-07] MEDS: Polyethylene Glycol 3350 17 GM Packet PO SCH (08:38)
[2022-11-07] MEDS: PHOS-NAK 1 PKT PACK PO SCH ×2 (08:38→16:29)
[2022-11-07] MEDS: Potassium Chloride 20 MEQ TAB PO SCH ×2 (08:39→16:29)
[2022-11-07] MEDS: Magnesium Oxide 400 MG TAB PO SCH ×2 (08:43→20:49)
[2022-11-07] MEDS: Amlodipine 5 MG TAB PO SCH (08:43)
[2022-11-07] MEDS: Amiodarone 200 MG TAB PO SCH (08:43)
[2022-11-07] MEDS ORDERED: Senokot S 8.6-50 MG TAB PO SCH (09:00)
[2022-11-07] MEDS ORDERED: Apixaban 5 MG TAB PO SCH ×2 (09:30→21:00)
[2022-11-07] MEDS: Simethicone Chewable 80 MG TAB PO SCH ×3 (10:47→20:49)
[2022-11-07] MEDS: Ondansetron PF 4 MG/2 ML Vial IVP PRN ×2 (10:51→20:49)
[2022-11-07] MEDS ORDERED: Polyethylene Glycol 3350 17 GM Packet PO SCH (11:00)
[2022-11-07] MEDS: Lactated Ringer's 1,000 ML IV SCH (11:34)
[2022-11-07] MEDS ORDERED: Ketorolac Tromethamine 30 MG/ML VIAL IVP SCH (12:00)
[2022-11-07 12:14] LABS: Bacteria/HPF None Seen HPF (None Seen); Bilirubin Negative (Negative); Blood, Urine 1+ (Negative); CAUTI Indications for Culture Pelvic or flank pain; Clarity Clear (Clear); Glucose, Urine (Dipstick) Normal (Negative); Ketone, Urine Negative (Negative); Leukocyte Negative Leu/uL (Negative); Nitrite Negative (Negative); Protein, Urine (Dipstick) 50 mg/dL (Neg-Trace); RBC/HPF 0-3 HPF (0-3); Specific Gravity, Urine 1.011 (1.002-1.036); Squamous Epithelial 0-3 HPF (0-3); Urobilinogen Normal mg/dL (Less than 2); WBC/HPF 0-3 HPF (0-3)
[2022-11-07 12:17] LABS: Urine Culture Reflex No No
[2022-11-07] MEDS ORDERED: HYDROmorphone 0.5 MG/0.5 ML SYRINGE SLOW IVP SCH (14:15)
[2022-11-07] MEDS: Senokot S 8.6-50 MG TAB PO SCH (20:38)
[2022-11-07] MEDS: Mirtazapine 15 MG Soltab PO SCH (20:49)
[2022-11-07] MEDS: Rosuvastatin 20 MG TAB PO SCH (20:49)
[2022-11-07] MEDS: Aspirin Chewable 81 MG TAB PO SCH (20:50)
[2022-11-08] MEDS: Lactated Ringer's 1,000 ML IV SCH ×2 (04:46→19:15)
[2022-11-08] MEDS: HYDROmorphone 2 MG TAB PO PRN ×2 (04:47→12:22)
[2022-11-08] MEDS: diphenhydrAMINE 25 MG CAP PO PRN (04:55)
[2022-11-08 05:08] LABS: #Lymphocytes 1.3 thou/uL (1.20-3.40); #Monocytes 0.5 thou/uL (0.11-0.59); #Neutrophils 5.3 thou/uL (1.40-6.50); %Eosinophils 0.2 % (0.0-10.0); %Lymphocytes 18.5 % (21.0-51.0); %Monocytes 6.6 % (0.0-10.0); %Neutrophils 74.7 % (42.0-75.0); Hemoglobin 8.9 g/dL (12.0-16.0); Mean Corpuscular HGB CONC 34.7 g/dL (32.0-36.0); Mean Corpuscular Hemoglobin 31.9 pg (27.0-31.0); Mean Corpuscular Volume 92.1 fl (78.0-98.0); Mean Platelet Volume 7.9 fL (7.4-10.4); Platelet Count 155 10x3/uL (130-400); RBC Distribution Width 12.5 % (11.5-14.5); Red Blood Cell (RBC) Count 2.77 mill/uL (4.20-5.40); White Blood Cell (WBC) Count 7.1 10x3/uL (4.8-10.8)
[2022-11-08 05:32] LABS: ALT (SGPT) 24 U/L (8-55); AST (SGOT) 48 U/L (5-34); Albumin 2.4 g/dL (3.4-4.8); Alkaline Phosphatase 116 U/L (40-110); Anion Gap 11 mmol/L (10-20); BUN (Urea Nitrogen) 10 mg/dL (9.8-20.1); Bilirubin, Total 0.9 mg/dL (0.2-1.2); Calc. Creatinine Clearance 44 mL/min (70-130); Calcium 7.7 mg/dL (7.8-10.44); Carbon Dioxide 23 mmol/L (23-31); Chloride 109 mmol/L (98-107); Estimated GFR 51; Globulin 2.3 g/dL (2.4-3.5); Glucose 95 mg/dL (83-110); Potassium 4.5 mmol/L (3.5-5.1); Protein, Total 4.7 g/dL (5.8-8.1); Sodium 138 mmol/L (136-145)
[2022-11-08 05:43] LABS: Magnesium 1.8 mg/dL (1.6-2.6); Phosphorus 2.3 mg/dL (2.3-4.7)
[2022-11-08] MEDS: Magnesium Oxide 400 MG TAB PO SCH ×2 (08:45→22:48)
[2022-11-08] MEDS: Potassium Chloride 20 MEQ TAB PO SCH ×2 (08:45→19:08)
[2022-11-08] MEDS: PHOS-NAK 1 PKT PACK PO SCH ×2 (08:45→19:09)
[2022-11-08] MEDS: Amlodipine 5 MG TAB PO SCH (08:46)
[2022-11-08] MEDS: Amiodarone 200 MG TAB PO SCH (08:47)
[2022-11-08] MEDS: Polyethylene Glycol 3350 17 GM Packet PO SCH (08:48)
[2022-11-08] MEDS: Senokot S 8.6-50 MG TAB PO SCH ×2 (08:48→22:48)
[2022-11-08] MEDS: Simethicone Chewable 80 MG TAB PO SCH ×2 (08:49→22:49)
[2022-11-08 09:06] LABS: Band 4 % (5-11); Lymphocytes 17 % (21-51); Monocytes 5 % (0-10); Neutrophil 74 % (42-75); Nucleated RBC 1 % (0)
[2022-11-08 09:07] LABS: Polychromasia SLIGHT = 2-3 cells (100X) (0-2/hpf)
[2022-11-08 09:08] LABS: Burr Cells SLIGHT = 2-5 cells (100X) (0-1/hpf); Platelet Morphology Comment Appears Adequate
[2022-11-08] MEDS: metroNIDAZOLE 500 MG in Premix Bag 1 BAG IVPB SCH ×2 (12:13→19:07)
[2022-11-08] MEDS: Proctozone-HC 30 GM TUBE TOP SCH ×3 (19:08→22:47)
[2022-11-08] MEDS: Ondansetron PF 4 MG/2 ML Vial IVP PRN (19:34)
[2022-11-08] MEDS: Mirtazapine 15 MG Soltab PO SCH (22:48)
[2022-11-08] MEDS: Aspirin Chewable 81 MG TAB PO SCH (22:50)
[2022-11-08] MEDS: Acetaminophen 325 MG TAB PO PRN (22:50)
[2022-11-08] MEDS: Rosuvastatin 20 MG TAB PO SCH (22:50)
[2022-11-08] MEDS ORDERED: Benzonatate 100 MG CAP PO PRN (23:09)
[2022-11-08] MEDS ORDERED: guaiFENesin ER 600 MG TAB PO SCH (23:30)
[2022-11-09] MEDS: metroNIDAZOLE 500 MG in Premix Bag 1 BAG IVPB SCH ×3 (04:31→17:06)
[2022-11-09] MEDS: Lactated Ringer's 1,000 ML IV SCH ×2 (04:32→22:51)
[2022-11-09 04:47] LABS: #Eosinphils 0.1 thou/uL (0.0-0.7); #Lymphocytes 1.3 thou/uL (1.20-3.40); #Monocytes 0.6 thou/uL (0.11-0.59); %Eosinophils 0.7 % (0.0-10.0); %Lymphocytes 16.1 % (21.0-51.0); %Monocytes 7.1 % (0.0-10.0); %Neutrophils 76.2 % (42.0-75.0); Hemoglobin 8.5 g/dL (12.0-16.0); Mean Corpuscular HGB CONC 31.4 g/dL (32.0-36.0); Mean Corpuscular Hemoglobin 29.3 pg (27.0-31.0); Mean Corpuscular Volume 93.1 fl (78.0-98.0); Mean Platelet Volume 7.3 fL (7.4-10.4); Platelet Count 224 10x3/uL (130-400); RBC Distribution Width 12.5 % (11.5-14.5); Red Blood Cell (RBC) Count 2.92 mill/uL (4.20-5.40); White Blood Cell (WBC) Count 7.9 10x3/uL (4.8-10.8)
[2022-11-09 05:09] LABS: Magnesium 1.7 mg/dL (1.6-2.6)
[2022-11-09 05:12] LABS: ALT (SGPT) 24 U/L (8-55); AST (SGOT) 46 U/L (5-34); Albumin 2.4 g/dL (3.4-4.8); Alkaline Phosphatase 124 U/L (40-110); Anion Gap 13 mmol/L (10-20); BUN (Urea Nitrogen) 10 mg/dL (9.8-20.1); Bilirubin, Total 0.8 mg/dL (0.2-1.2); Calc. Creatinine Clearance 45 mL/min (70-130); Calcium 7.7 mg/dL (7.8-10.44); Carbon Dioxide 21 mmol/L (23-31); Chloride 108 mmol/L (98-107); Estimated GFR 52; Globulin 2.4 g/dL (2.4-3.5); Glucose 98 mg/dL (83-110); Phosphorus 1.9 mg/dL (2.3-4.7); Potassium 4.4 mmol/L (3.5-5.1); Protein, Total 4.8 g/dL (5.8-8.1); Sodium 138 mmol/L (136-145)
[2022-11-09] MEDS ORDERED: Sodium Phosphate 30 MMOL in Sodium Chloride 0.9% 250 ML 250 ML IVPB SCH (07:30)
[2022-11-09] MEDS ORDERED: Magnesium 2 GM/50 ML(in water) 2 GM in Premix Bag 1 BAG IVPB SCH (07:30)
[2022-11-09] MEDS: Ondansetron PF 4 MG/2 ML Vial IVP PRN ×2 (09:04→17:07)
[2022-11-09] MEDS: Potassium Chloride 20 MEQ TAB PO SCH ×2 (12:04→18:54)
[2022-11-09] MEDS: PHOS-NAK 1 PKT PACK PO SCH ×2 (12:04→18:53)
[2022-11-09] MEDS: Amiodarone 200 MG TAB PO SCH (12:05)
[2022-11-09] MEDS: Amlodipine 5 MG TAB PO SCH (12:05)
[2022-11-09] MEDS: Polyethylene Glycol 3350 17 GM Packet PO SCH (12:05)
[2022-11-09] MEDS: guaiFENesin ER 600 MG TAB PO SCH ×2 (12:05→22:50)
[2022-11-09] MEDS: Senokot S 8.6-50 MG TAB PO SCH ×2 (12:05→22:49)
[2022-11-09] MEDS: Magnesium Oxide 400 MG TAB PO SCH ×2 (12:06→22:50)
[2022-11-09] MEDS: Simethicone Chewable 80 MG TAB PO SCH ×2 (12:06→22:50)
[2022-11-09] MEDS: Proctozone-HC 30 GM TUBE TOP SCH ×2 (12:06→22:54)
[2022-11-09] MEDS: HYDROmorphone 2 MG TAB PO PRN (17:04)
[2022-11-09] MEDS: Aspirin Chewable 81 MG TAB PO SCH (22:49)
[2022-11-09] MEDS: Mirtazapine 15 MG Soltab PO SCH (22:50)
[2022-11-09] MEDS: Rosuvastatin 20 MG TAB PO SCH (22:50)
[2022-11-10] MEDS: Ondansetron PF 4 MG/2 ML Vial IVP PRN ×3 (00:53→13:12)
[2022-11-10] MEDS: metroNIDAZOLE 500 MG in Premix Bag 1 BAG IVPB SCH ×2 (00:58→12:08)
[2022-11-10 05:28] LABS: #Monocytes 0.6 thou/uL (0.11-0.59); #Neutrophils 5.8 thou/uL (1.40-6.50); %Eosinophils 0.6 % (0.0-10.0); %Lymphocytes 13.6 % (21.0-51.0); %Monocytes 7.6 % (0.0-10.0); %Neutrophils 78.2 % (42.0-75.0); Hemoglobin 8.6 g/dL (12.0-16.0); Mean Corpuscular HGB CONC 32.9 g/dL (32.0-36.0); Mean Corpuscular Hemoglobin 30.8 pg (27.0-31.0); Mean Corpuscular Volume 93.5 fl (78.0-98.0); Platelet Count 261 10x3/uL (130-400); RBC Distribution Width 12.5 % (11.5-14.5); Red Blood Cell (RBC) Count 2.79 mill/uL (4.20-5.40); White Blood Cell (WBC) Count 7.4 10x3/uL (4.8-10.8)
[2022-11-10 06:06] LABS: ALT (SGPT) 19 U/L (8-55); AST (SGOT) 33 U/L (5-34); Albumin 2.3 g/dL (3.4-4.8); Alkaline Phosphatase 114 U/L (40-110); Anion Gap 12 mmol/L (10-20); BUN (Urea Nitrogen) 8 mg/dL (9.8-20.1); Bilirubin, Total 0.6 mg/dL (0.2-1.2); Calc. Creatinine Clearance 53 mL/min (70-130); Calcium 7.6 mg/dL (7.8-10.44); Carbon Dioxide 19 mmol/L (23-31); Chloride 110 mmol/L (98-107); Estimated GFR 63; Globulin 2.2 g/dL (2.4-3.5); Glucose 110 mg/dL (83-110); Magnesium 1.9 mg/dL (1.6-2.6); Potassium 3.5 mmol/L (3.5-5.1); Protein, Total 4.5 g/dL (5.8-8.1); Sodium 137 mmol/L (136-145)
[2022-11-10 08:08] VITALS: BP 135/64; TEMP 97.8
[2022-11-10] MEDS: PHOS-NAK 1 PKT PACK PO SCH (08:21)
[2022-11-10] MEDS: Amlodipine 5 MG TAB PO SCH (08:21)
[2022-11-10] MEDS: Amiodarone 200 MG TAB PO SCH (08:21)
[2022-11-10] MEDS: Potassium Chloride 20 MEQ TAB PO SCH (08:21)
[2022-11-10] MEDS: guaiFENesin ER 600 MG TAB PO SCH (08:22)
[2022-11-10] MEDS: Senokot S 8.6-50 MG TAB PO SCH (08:22)
[2022-11-10] MEDS: Simethicone Chewable 80 MG TAB PO SCH (08:22)
[2022-11-10] MEDS: Magnesium Oxide 400 MG TAB PO SCH (08:22)
[2022-11-10] MEDS: Polyethylene Glycol 3350 17 GM Packet PO SCH (08:22)
[2022-11-10] MEDS: HYDROmorphone 2 MG TAB PO PRN ×2 (10:07→13:37)
[2022-11-10] MEDS: Proctozone-HC 30 GM TUBE TOP SCH (13:00)
[2022-11-10] MEDS: Lactated Ringer's 1,000 ML IV SCH (13:06)
[2022-11-10] MEDS ORDERED: Ondansetron ODT 4 MG TAB PO SCH (13:15)
== END 2022-11-10 13:50 | disposition hospice, home (50) | DRG 392 ==
LOC: ERS 09:39 → MSONC 12:08
PROVIDERS: ADMIT Student in an Organized Health Care Education/Training Program; ATTEND Family Medicine
PROC: 30233N1 Transfusion of Nonautologous Red Blood Cells into Peripheral Vein, Percutaneous Approach (ICD-10-PCS; 2022-11-03)
PROC: 0D9670Z Drainage of Stomach with Drainage Device, Via Natural or Artificial Opening (ICD-10-PCS; principal; 2022-11-07)
DX: K52.89 Other specified noninfective gastroenteritis and colitis (principal); Z66 Do not resuscitate; Z51.5 Encounter for palliative care; Z20.822 Contact with and (suspected) exposure to COVID-19; K57.32 Diverticulitis of large intestine without perforation or abscess without bleeding; C25.9 Malignant neoplasm of pancreas, unspecified; J81.1 Chronic pulmonary edema; N17.9 Acute kidney failure, unspecified; R50.9 Fever, unspecified; K64.8 Other hemorrhoids; E87.6 Hypokalemia; E83.42 Hypomagnesemia; E83.39 Other disorders of phosphorus metabolism; I48.91 Unspecified atrial fibrillation; I25.10 Atherosclerotic heart disease of native coronary artery without angina pectoris; K21.9 Gastro-esophageal reflux disease without esophagitis; E78.5 Hyperlipidemia, unspecified; D69.6 Thrombocytopenia, unspecified; E86.0 Dehydration; I10 Essential (primary) hypertension; K58.1 Irritable bowel syndrome with constipation; T40.2X5A Adverse effect of other opioids, initial encounter; R05.9 Cough, unspecified; Z88.5 Allergy status to narcotic agent; Z88.0 Allergy status to penicillin; Z88.8 Allergy status to other drugs, medicaments and biological substances; Z79.899 Other long term (current) drug therapy; Z79.51 Long term (current) use of inhaled steroids; Z79.82 Long term (current) use of aspirin; Z79.01 Long term (current) use of anticoagulants; Z90.710 Acquired absence of both cervix and uterus; Z90.49 Acquired absence of other specified parts of digestive tract; Z87.891 Personal history of nicotine dependence
CPT/HCPCS: 36415; 36416; 36430; 71045; 71275; 74018; 74177; 74250; 80048; 80053; 80202; 81001; 82550; 82553; 83605; 83690; 83735; 83880; 84100; 84132; 84145; 84484; 85025; 86140; 86850; 86900; 86901; 87040; 87086; 93005; C1788; J0692; J0744; J1170; J1642; J1885; J1940; J2001; J2405; J2704; J3010; J3370-JW; J3475; J3480; J3490; J7050; J7120; P9016; Q9963; Q9967